=== PATIENT | male | born 1945 | race Caucasian/White ===

== ENCOUNTER 2016-06-02 17:15 | Emergency (ER) | payer OTHER, BC ==
[~2016-06-02] VITALS: Ht 182.9 cm; Wt 77.1 kg
[~2016-06-02 17:15] MED LIST: ASPIRIN81 M1 PO; FLOMAX0.4 MG PO; NIFEDIPINE ER30 MG PO; PLAQUENIL200 MG PO; PRILOSEC40 MG PO
[2016-06-02 20:23] VITALS: BP 144/76
== END 2016-06-02 20:24 | disposition home or self-care (01) ==
LOC: EME 17:15
DX: S00.31XA Abrasion of nose, initial encounter (principal); W01.190A Fall on same level from slipping, tripping and stumbling with subsequent striking against furniture, initial encounter; Z87.891 Personal history of nicotine dependence
CPT/HCPCS: 70160; 70450; 70486; 99281; 99283